=== PATIENT | female | born 1980 | race Asian ===

== ENCOUNTER 2023-03-20 10:18 | Emergency (ER) | payer MEDICAID ==
[~2023-03-20] VITALS: Ht 160 cm; Wt 82.0 kg
[2023-03-20] MEDS ORDERED: IBUPROFEN 400MG TABLET PO ONE (11:00)
[2023-03-20] MEDS ORDERED: LIDOCAINE 5% PATCH TOP SCH (11:00)
[2023-03-20] MEDS ORDERED: METHOCARBAMOL 750MG TABLET PO SCH (11:00)
[2023-03-20 12:14] VITALS: BP 122/74
[2023-03-20] MEDS ORDERED: IBUP-2028 MT (12:48)
[2023-03-20] MEDS ORDERED: LIDO1ADH23 TP (12:48)
[2023-03-20] MEDS ORDERED: METH-653 MT (12:48)
== END 2023-03-20 13:03 | disposition home or self-care (01) ==
LOC: ER 10:55
DX: M62.838 Other muscle spasm (principal); Z98.890 Other specified postprocedural states
CPT/HCPCS: 73030; 99283

== ENCOUNTER 2023-08-01 08:54 | Emergency (ER) | payer MEDICAID ==
[~2023-08-01] VITALS: Ht 160 cm; Wt 70.0 kg
[~2023-08-01 08:54] MED LIST: IBUP-2028 MT; LIDO1ADH23 TP; METH-653 MT
[2023-08-01 09:04] VITALS: O2SAT 99
[2023-08-01 11:32] LABS: BASOPHILS % 0.3 % (0.0-2.0); EOSINOPHILS % 2.6 % (0.0-5.0); HEMATOCRIT. 40.8 % (36.0-48.0); HEMOGLOBIN. 13.1 g/dL (12.0-16.0); LYMPHOCYTES % 33.9 % (20.0-50.0); MEAN CORPUSCULAR HEMOGLOBIN 26.2 pg (28.0-32.0); MEAN CORPUSCULAR VOLUME 81.7 fL (81.0-99.0); MEAN PLATELET VOLUME 10.3 fl (7.4-10.4); MONOCYTES % 3.7 % (2.0-8.0); NEUTROPHILS % 59.5 % (40.0-76.0); PLATELET 211 x1000/uL (130-400); RED CELL DISTRIBUTION WIDTH 14.5 % (11.6-14.6); WHITE BLOOD COUNT 7.3 x1000/uL (4.5-11.0)
[2023-08-01 11:37] LABS: HCG SCREEN NEGATIVE
[2023-08-01 11:41] LABS: CHLORIDE 110 mEq/L (98-107); INDEX HEMOLYSI 1 (1-3); INDEX ICTERIC 1 (1-4); INDEX LIPEMIC 1 (1-3); POTASSIUM 3.6 mEq/L (3.5-5.1); SODIUM 138 mEq/L (136-145)
[2023-08-01 11:43] LABS: PROTHROMBIN TIME 10.8 sec (9.6-11.0)
[2023-08-01 11:48] LABS: ALANINE AMINOTRANSFERASE 41 IU/L (13-61); ALBUMIN 3.6 g/dL (3.4-5.0); ASPARTATE AMINOTRANSFERASE 20 IU/L (15-37); BILIRUBIN TOTAL 0.5 mg/dL (0.1-1.0); CALCIUM 8.8 mg/dL (8.5-10.1); CARBON DIOXIDE 23 mEq/L (21-32); CREATININE 0.5 mg/dL (0.6-1.3); GLUCOSE 154 mg/dL (70-105); PROTEIN TOTAL 8.4 g/dL (6.0-8.3); UREA NITROGEN BLOOD 11 mg/dL (7-21)
[2023-08-01 13:00] LABS: CLARITY URINE CLOUDY (CLEAR); COLOR URINE YELLOW (YELLOW); GLUCOSE URINE 3+ (NEGATIVE); KETONES URINE NEGATIVE (NEGATIVE); LEUKOCYTE ESTERASE URINE NEGATIVE (NEGATIVE); NITRITE URINE NEGATIVE (NEGATIVE); OCCULT BLOOD URINE NEGATIVE (NEGATIVE); PROTEIN URINE NEGATIVE (NEGATIVE); SPECIFIC GRAVITY URINE 1.035 (1.005-1.030); UROBILINOGEN URINE 0.2 E.U./dL (0.2-1.0)
[2023-08-01 13:02] LABS: BACTERIA URINE 2+; RBC URINE 0-2 /hpf (0-2); SQUAMOUS EPITHELIAL CELL URINE 3+ /lpf (RARE/1+); YEAST URINE NONE SEEN
[2023-08-01] MEDS ORDERED: METF-414 MT ×3 (13:17→13:24)
[2023-08-01 13:36] VITALS: BP 130/79; PULSE 65; RESP 18; TEMP 98
== END 2023-08-01 13:37 | disposition home or self-care (01) ==
LOC: ER 08:54
DX: E11.9 Type 2 diabetes mellitus without complications (principal); Z76.0 Encounter for issue of repeat prescription; Z98.890 Other specified postprocedural states
CPT/HCPCS: 36415; 80053; 81003; 82962; 84703; 85025; 99283